=== PATIENT | male | born 1945 | race Caucasian/White ===

== ENCOUNTER → 2017-01-11 | Outpatient (CLI) | payer MEDICARE, BC | END | disposition home or self-care (01) | LOC: PCVCCLINIC 10:46 | PROVIDERS: ATTEND Internal Medicine | DX: I48.0 Paroxysmal atrial fibrillation (principal); E78.5 Hyperlipidemia, unspecified; I10 Essential (primary) hypertension; G47.33 Obstructive sleep apnea (adult) (pediatric) | CPT/HCPCS: 80061; 93005; G0463 ==

== ENCOUNTER → 2018-01-10 | Outpatient (CLI) | payer MEDICARE, BC | END | disposition home or self-care (01) | LOC: PCVCCLINIC 11:08 | DX: I11.0 Hypertensive heart disease with heart failure (principal); I50.32 Chronic diastolic (congestive) heart failure; I48.0 Paroxysmal atrial fibrillation; E78.2 Mixed hyperlipidemia; G47.33 Obstructive sleep apnea (adult) (pediatric); Z79.82 Long term (current) use of aspirin; Z79.899 Other long term (current) drug therapy | CPT/HCPCS: 93005; G0463 ==

== ENCOUNTER → 2019-04-03 | Outpatient (CLI) | payer MEDICARE, BC ==
[~2019-04-03] MED LIST: REGADENOSON 0.4 MG/5 ML DISP.SYRIN. IV ONE
--- NOTE | 2019-04-07 07:24 | PCVCIMAG ---
APPROVED REPORT Imaging Protocol: Rest Tc-99m/Stress Tc-99m 1 day Study performed: 04/03/2019 09:37:21 Indication: P-Atrial Fibrillation, Chronic Diastolic Heart Failure Patient Location: Out-Patient Stress Nurse: Malissa Carrillo RN, Radha Pritchett RN ND Tech:Liliana SOMMER BurrMT Ht: 5 ft 4 in Wt: 202 lbs BSA: 1.96 m2 HR: 58 bpm BP: 198/80 mmHg BMI: 34.6 Rhythm: Sinus Bradycardia, RBBB Medical History Medical History: Hyperlipidemia, HTN Medications: Rhythmol, ASA, Celexa, Cardizem, Enalapril, HCTZ, Pravastatin, Zantac, Zanaflex Allergies: Multiple - none relevant to this exam Cardiac Risk Factors: Age Pretest Chest Pain Characteristics: No chest pain Exercise History: Sedentary Physical Disabilities: Back, Hips Resting Data Rest SPECT myocardial perfusion imaging was performed in supine position 45 minutes following the intravenous injection of 11.3 mCi of Tc-99m Sestamibi. Time of rest injection: 914 Date: 04/03/2019 Administration Route: IV Administration Site: Right AC Pharmacologic Stress Pharmacologic stress test was performed by injecting Regadenoson 0.4 mg IV push over 10-15 seconds immediately followed by the intravenous injection of 34.1 mCi of Tc-99m Sestamibi. Time of stress injection: 1030 Date: 04/03/2019 Administration Route: IV Administration Site: Right AC Gated Stress SPECT was performed 45 minutes after stress injection. The images were gated to evaluate regional wall motion and calculate left ventricular ejection fraction. Stress Test Details Stress Test: Pharmacologic stress testing performed using 0.4 mg of regadenoson per 5 mL given IV over 10 seconds. Reason for pharmacologic stress test: back and hip issues, uses a cane. HRMax Heart Rate (APMHR): 145 bpm Resting HR: 58 bpmTarget HR (85% APMHR): 123 bpm Max HR Achieved: 80 bpm % of APMHR: 55 Recovery HR: 69 bpm BP Resting BP: 198/80 mmHg Max BP: 166/77 mmHg Recovery BP: 168/72 mmHg ECG Resting ECG: Sinus Bradycardia, RBBB Stress ECG: Sinus Rhythm, RBBB ST Change: None Maximum ST Deviation: 0 mm Arrhythmia: None Recovery ECG: Sinus Rhythm, RBBB Recovery ST Change: Normal Recovery ST Deviation: 0 mm Recovery Arrhythmia: None Clinical Reason for Termination: Completed protocol Stress Symptoms: Dyspnea Exercise duration: 0 min 55 sec Symptoms resolved during recovery. Stress ECG Conclusion Clinical: Non-ischemic ECG: Non-ischemic Study Quality Study: Good Study Data Post stress, the left ventricular ejection was 71%.. SSS: 14 SRS: 10 SDS: 4 TID = 0.92. 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 Post stress, the left ventricular ejection was 71%. No prior study available for comparison. Interpreted by: Abdiaziz Queen MD Electronically Approved: 04/03/2019 13:52:30 <Conclusion> Clinical: Non-ischemic ECG: Non-ischemic
== END | disposition home or self-care (01) ==
LOC: PCVCIMAG 08:30
PROVIDERS: ATTEND Internal Medicine
DX: I48.0 Paroxysmal atrial fibrillation (principal); I50.32 Chronic diastolic (congestive) heart failure
CPT/HCPCS: 78452; 93017; A9500; J2785

== ENCOUNTER → 2019-04-28 | Outpatient (CLI) | payer MEDICARE, BC | END | disposition home or self-care (01) | LOC: PCVCCLINIC 11:00 | PROVIDERS: ATTEND Internal Medicine | DX: I25.10 Atherosclerotic heart disease of native coronary artery without angina pectoris (principal); I48.0 Paroxysmal atrial fibrillation; I11.0 Hypertensive heart disease with heart failure; I50.32 Chronic diastolic (congestive) heart failure; G47.33 Obstructive sleep apnea (adult) (pediatric); K21.9 Gastro-esophageal reflux disease without esophagitis; Z79.82 Long term (current) use of aspirin | CPT/HCPCS: 93005; G0463 ==